=== PATIENT | male | born 1970 | race Caucasian/White ===

== ENCOUNTER 2021-04-21 17:37 | Emergency (ER) | payer OTHER, SELFPAY ==
--- NOTE | ~2021-04-21 | XR_ITS ---
XR hand RT 2V 04/21/2021 21:03 INDICATION: Right hand pain PROCEDURE: 2 views right hand COMPARISON: 04/21/2021. FINDINGS: Interval reduction of the fifth metacarpal. There is an ossific density medial to the base of the fifth metacarpal, likely an avulsion fracture fragment. Mild soft tissue swelling. No foreig n bodies are identified. IMPRESSION: 1: Interval reduction of the right fifth carpometacarpal joint with probable avulsion fracture along the radial aspect of the base of the fifth metacarpal. Reviewed, dictated and finalized at location A. H CLEARANCE COORDINATOR IMPRESSION: 1: Interval reduction of the right fifth carpometacarpal joint with probable av ulsion fracture along the radial aspect of the base of the fifth metacarpal.
[2021-04-21 17:56] VITALS: BP 122/65; PULSE 68; RESP 14; TEMP 37; O2SAT 100
[2021-04-21 19:20] VITALS: BP 121/69; PULSE 78; RESP 18; O2SAT 98
[2021-04-21] MEDS: MORPHINE SULFATE INJ (*CRX) 10 MG/ML AMP 2 MG IM (20:38)
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
== END 2021-04-21 21:45 | disposition home or self-care (01) ==
PROVIDERS: Emergency Provider Emergency Medicine; PCP Family Medicine
DX: S63.266A Dislocation of metacarpophalangeal joint of right little finger, initial encounter (principal); V18.4XXA Pedal cycle driver injured in noncollision transport accident in traffic accident, initial encounter
CPT/HCPCS: 29125; 73120; 96372; 99199; 99284; J2270